=== PATIENT | female | born 1980 | race Caucasian/White ===

== ENCOUNTER 2016-11-06 22:37 | Emergency (ER) | payer OTHER ==
[~2016-11-06 22:37] MED LIST: BACTRIM DS TABL1 TA1 PO; BENTYL10 MG PO; CIPRO PO; CIPRO250 MG PO; CLINDAMYCIN HC300 MG PO; DICLOFENAC PO; DOXYCYCLINE HY100 M1 PO; ELIMITE60 GM TOP; FAMOTIDINE PO; FLAGYL PO; FLEXERIL PO; HYDROCODON-ACE1 EAC5 PO; HYDROCODONE-APA1 T33 PO; IBUPROFEN400 MG PO; IBUPROFEN800 MG PO; KADIAN PO; KEFLEX500 MG PO; KLONOPIN PO; LORTAB 10/500 T1 TAB PO; LORTAB 7.5-5001 TAB PO; LORTAB ELIXIR15 ML PO; MEDROL PO; METHADONE PO; NAPROSYN500 MG PO; NEOSPORIN28 GM TP; NORCO 7.5/325 T1 TAB PO; OMEPRAZOLE20 M1 PO; OMEPRAZOLE20 M2 PO; PARAFON FORTE500 MG PO; PENICILLIN; PENICILLIN PO; PERCOCET PO; PERCOCET5/325 PO; PHENERGAN PO; PHENERGAN SUPP25 MG; PHENERGAN SUPP25 MG PR; PHENERGAN SUPP25 MG RC; PHENERGAN25 M1 PO; PHENERGAN25 MG PO; PREDNISONE PO; PRILOSEC20 M1 PO; PRILOSEC20 MG PO; PROTONIX PO; PYRIDIUM PO; REGLAN10 MG PO; ROXICODONE I20 MG/ML PO; SUBOXONE 8 MG-1 EAC1 SL; TAGAMET PO; TYLENOL #3 PO; VISTARIL PO; VOLTAREN75 MG PO
[2016-11-06 23:42] LABS: BASOPHIL% 0.2 % (0-2.5); EOSINOPHIL% 0.1 % (0.0-7.0); HEMOGLOBIN 12.7 gm/dL (12.0-16.0); LYMPHOCYTE# 1.2 X10e3 (1.0-3.5); LYMPHOCYTE% 6.4 % (17.0-45.0); MEAN CELL VOLUME 92.9 FL (83-96); MEAN CORPUSCULAR HGB CONC 33.4 g/dL (30-36); MEAN PLATELET VOLUME 8.3 FL (6.5-11.5); MONOCYTE% 5.6 % (3.0-12.0); NEUTROPHIL# 15.8 X10e3 (1.5-7.1); NEUTROPHIL% 87.7 % (40-75); PLATELET COUNT 231 X10e3 (140-420); RED BLOOD COUNT 4.09 X10e (3.90-5.30); RED CELL DISTRIBUTION WIDTH 13.1 % (11.0-15.5); WHITE BLOOD COUNT 18.1 X10e3 (4.0-10.5)
[2016-11-06 23:50] LABS: DIFF IND YES
[2016-11-06 23:54] LABS: URINE SOURCE CLEAN CATCH
[2016-11-06 23:57] LABS: ANISOCYTOSIS SL; PLATELET ESTIMATE NORMAL (NORMAL)
[2016-11-07 00:05] LABS: URINE APPEARANCE CLEAR; URINE BILIRUBIN NEG (NEG); URINE BLOOD NEG (NEG); URINE COLOR YELLOW; URINE GLUCOSE 500 MG/DL (NEG); URINE KETONE NEG (NEG); URINE LEUKOCYTE ESTERASE NEG (NEG); URINE NITRATE NEG (NEG); URINE PH 5.5 (5-8); URINE PROTEIN NEG (NEG); URINE SPECIFIC GRAVITY 1.019 (1.003-1.035); URINE UROBILINOGEN 0.2 MG/DL (NEG)
[2016-11-07 00:07] LABS: ALBUMIN SERUM 4.1 g/dL (3.5-5.0); ALKALINE PHOSPHATASE 58 U/L (32-92); ALT (SGPT) 27 U/L (10-40); AST (SGOT) 30 U/L (10-42); BILIRUBIN,INDIRECT 0.4 mg/dL (0.0-0.9); BILIRUBIN,TOTAL 0.5 mg/dL (0.2-2.0); BLOOD UREA NITROGEN 10 mg/dL (9-23); CALCIUM SERUM 8.7 mg/dL (8.4-10.2); CARBON DIOXIDE 24 mmol/L (22-31); CHLORIDE 104 mmol/L (100-111); CREATININE SERUM 0.8 mg/dL (0.6-1.4); GLOM FILT RATE Estimated ABOVE60 mL/min (>60); GLUCOSE FASTING 154 mg/dL (70-110); POTASSIUM 4.3 mmol/L (3.5-5.1); PROTEIN TOTAL SERUM 7.3 g/dL (6.0-8.3); SODIUM 137 mmol/L (135-145)
[2016-11-07 00:08] LABS: ALCOHOL BLOOD <5 mg/dL (0); BILIRUBIN, DIRECT 0.1 mg/dL (0.0-0.2)
[2016-11-07 00:12] LABS: AMPHETAMINE NEG (NEG); BARBITURATES NEG (NEG); BENZODIAZEPINES NEG (NEG); COCAINE NEG (NEG); CULTURE INDICATED? NO; MARIJUANA NEG (NEG); OPIATES POS (NEG); TRICYCLIC ANTIDEPRESSANTS NEG (NEG); U METHADONE NEG (NEG)
== END 2016-11-07 01:40 | disposition home or self-care (01) ==
LOC: CED 22:37
PROVIDERS: Student in an Organized Health Care Education/Training Program
DX: F11.10 Opioid abuse, uncomplicated (principal); F17.200 Nicotine dependence, unspecified, uncomplicated; Z91.040 Latex allergy status
CPT/HCPCS: 36415; 80048; 80076; 80307; 81003; 84703; 85025; 96361; 96374; 99284; G0480; J2405

== ENCOUNTER 2016-11-16 13:12 | Emergency (ER) | payer OTHER ==
--- NOTE | ~2016-11-16 | CR72 ---
[facility] A Service of [facility] & [facility] RADIOLOGY TEXT RESULTS PATIENT: DEON FLOWERS LOCATION: [facility] : 84 UNIT #: [id number] AGE: [address]: Kevin Reyes DO SEX: F ORDER DR: [id number] [facility] [address] [place], [place] [address] [id number] MR#: [id number] Acc #: [id number] NAME: DEON FLOWERS : 1980 SEX: F STUDY DATE/TIME: 11/16/2016 12:20 UNIT: [facility] ROOM: STUDY DESCRIPTION: CR Chest Single View Portable Attending Physician: Kevin Reyes D.O. Ordering Physician: Kevin Reyes D.O. Primary Care Physician: No Primary Care Physician MEDICAL IMAGING REPORT This report is preliminary unless electronic signature is present EXAM Frontal chest, 11/16/2016. HISTORY 36-year-old female with chest pain, burning at the top of the chest for 2 years. Symptoms worse today, however. Hypertension. TECHNIQUE Frontal chest compared with 01/18/2016. FINDINGS Cardiac silhouette is within normal limits. The vascularity is normal. Lungs clear. No pneumothorax. No effusion. IMPRESSION Negative frontal chest. Dictated by... Bret Vega M.D. THIS IS AN ELECTRONICALLY VERIFIED REPORT Bret Vega M.D. at 11/16/2016 3:44 PM Horacio TD: 11/16/2016 14:45 JOB #: [id number] MEDICAL IMAGING REPORT COPY
--- NOTE | ~2016-11-16 | EKG ---
PATIENT: DEON FLOWERS UNIT #: [id number] Ventricular Rate: 95 BPM Atrial Rate: 95 BPM P-R Interval: 128 ms QRS Duration: 86 ms Q-T Interval: 332 ms QTC Calculation(Bezet): 417 ms P Boise: 61 degrees Calculated R Boise: 21 degrees Diagnosis Line: Normal sinus rhythm Diagnosis Line: Minimal voltage criteria for LVH, may be normal Diagnosis Line: variant Diagnosis Line: Nonspecific T wave abnormality Diagnosis Line: Abnormal ECG Diagnosis Line: When compared with ECG of 06-SEP-2016 23:46, Diagnosis Line: Nonspecific T wave abnormality, worse in Diagnosis Line: Anterolateral leads Diagnosis Line: Confirmed by DANA OVALLE MD ([id number]) on 11/17/2016 Diagnosis Line: 5:39:41 PM INTERPRETING MD: YAMILE BUCHANAN
[2016-11-16 12:40] LABS: URINE SOURCE CLEAN CATCH
[2016-11-16 12:45] LABS: BASOPHIL% 0.5 % (0-2.5); EOSINOPHIL# 0.1 X10e3 (0-0.7); EOSINOPHIL% 1.2 % (0.0-7.0); HEMATOCRIT 38.6 % (35.0-45.0); HEMOGLOBIN 13.3 gm/dL (12.0-16.0); LYMPHOCYTE# 1.8 X10e3 (1.0-3.5); LYMPHOCYTE% 22.4 % (17.0-45.0); MEAN CORPUSCULAR HEMOGLOBIN 31.3 PG (28-34); MEAN CORPUSCULAR HGB CONC 34.3 g/dL (30-36); MEAN PLATELET VOLUME 8.5 FL (6.5-11.5); MONOCYTE# 0.6 X10e3 (0-1.0); MONOCYTE% 7.2 % (3.0-12.0); NEUTROPHIL# 5.6 X10e3 (1.5-7.1); NEUTROPHIL% 68.7 % (40-75); PLATELET COUNT 267 X10e3 (140-420); RED BLOOD COUNT 4.24 X10e (3.90-5.30); RED CELL DISTRIBUTION WIDTH 12.8 % (11.0-15.5); WHITE BLOOD COUNT 8.1 X10e3 (4.0-10.5)
[2016-11-16 12:46] LABS: URINE APPEARANCE CLEAR; URINE BILIRUBIN NEG (NEG); URINE BLOOD NEG (NEG); URINE COLOR YELLOW; URINE GLUCOSE NEG (NEG); URINE KETONE NEG (NEG); URINE LEUKOCYTE ESTERASE NEG (NEG); URINE NITRATE NEG (NEG); URINE PH 5.5 (5-8); URINE PROTEIN NEG (NEG); URINE SPECIFIC GRAVITY 1.017 (1.003-1.035); URINE UROBILINOGEN 0.2 MG/DL (NEG)
[2016-11-16 12:46] LABS: DIFF IND NO
[2016-11-16 12:48] LABS: CULTURE INDICATED? NO
[2016-11-16 12:56] LABS: AMPHETAMINE NEG (NEG); BARBITURATES NEG (NEG); BENZODIAZEPINES NEG (NEG); COCAINE NEG (NEG); MARIJUANA NEG (NEG); OPIATES NEG (NEG); TRICYCLIC ANTIDEPRESSANTS NEG (NEG); U METHADONE NEG (NEG)
[2016-11-16 12:58] LABS: PARTIAL THROMBOPLASTIN TIME 26.8 SECONDS (23.5-31.3); PROTHROMBIN TIME (PATIENT) 10.8 SECONDS (9.6-11.5)
[2016-11-16 13:04] LABS: POC - CKMB <1.0 ng/mL (0.0-7.9); POC - TROPONIN <0.05 ng/mL (<=0.05)
[2016-11-16 13:15] LABS: ACETAMINOPHEN <10 ug/mL; ALBUMIN SERUM 4.1 g/dL (3.5-5.0); ALCOHOL BLOOD <5 mg/dL (0); ALKALINE PHOSPHATASE 50 U/L (32-92); ALT (SGPT) 16 U/L (10-40); AST (SGOT) 18 U/L (10-42); BILIRUBIN, DIRECT <0.1 mg/dL (0.0-0.2); BILIRUBIN,INDIRECT 0.2 mg/dL (0.0-0.9); BILIRUBIN,TOTAL 0.3 mg/dL (0.2-2.0); BLOOD UREA NITROGEN 9 mg/dL (9-23); BUN/CREATININE RATIO 12.85; CALCIUM SERUM 9.4 mg/dL (8.4-10.2); CARBON DIOXIDE 25 mmol/L (22-31); CHLORIDE 104 mmol/L (100-111); CREATININE SERUM 0.7 mg/dL (0.6-1.4); GLOM FILT RATE Estimated ABOVE60 mL/min (>60); GLUCOSE FASTING 104 mg/dL (70-110); POTASSIUM 3.5 mmol/L (3.5-5.1); PROTEIN TOTAL SERUM 7.4 g/dL (6.0-8.3); SODIUM 138 mmol/L (135-145)
[2016-11-16 14:41] LABS: POC - CKMB <1.0 ng/mL (0.0-7.9); POC - TROPONIN <0.05 ng/mL (<=0.05)
== END 2016-11-16 15:07 | disposition home or self-care (01) ==
LOC: CED 13:12
PROVIDERS: Emergency Medicine
DX: R07.9 Chest pain, unspecified (principal); Z90.49 Acquired absence of other specified parts of digestive tract; Z91.040 Latex allergy status; Z88.6 Allergy status to analgesic agent
CPT/HCPCS: 36415; 71010; 80048; 80076; 80307; 81003; 82553; 84484; 84703; 85025; 85379; 85610; 85730; 93005; 96374; 96375; 99284; G0480; J1885

== ENCOUNTER 2016-11-21 09:29 | Emergency (ER) | payer OTHER | END 2016-11-21 09:34 | disposition home or self-care (01) | LOC: CED 09:29 | DX: R20.9 Unspecified disturbances of skin sensation (principal); F17.200 Nicotine dependence, unspecified, uncomplicated; Z90.49 Acquired absence of other specified parts of digestive tract; Z98.51 Tubal ligation status | CPT/HCPCS: 99282 ==

== ENCOUNTER 2016-11-21 20:00 | Inpatient (IN) | payer OTHER ==
--- NOTE | ~2016-11-21 | PN ---
Unit #: [id number] #: [id number] Patient: DEON FLOWERS [id number] [facility] [address] [place] [address] [id number] I MR#: [id number] NAME: DEON FLOWERS ROOM: [facility] Age: 36 Sex: F Admission Date: 11/21/2016 : 1980 Attending Physician: Silverio Greenberg M.D. Admitting Physician: Silverio Greenberg M.D. Primary Care Physician: Primary Care Physician Chioma DELUNA PROGRESS NOTES DATE 11/24/2016 DISCUSSION The patient is abed today complaining of severe discomfort related to substance withdrawal. Staff reports that she seems to be exaggerating her symptoms at this time, but she had seemed in much less distress earlier in the day. I have encouraged the patient to increase participation within the therapeutic milieu and expect a.m. discharge. Dictated by... Silverio Greenberg M.D. CB/tigre TD: 11/24/2016 14:29 JOB #: [id number] REGI PROGRESS NOTES X Silverio Greenberg MD PROGRESS NOTE
--- NOTE | ~2016-11-21 | PN ---
Unit #: [id number] #: [id number] Patient: DEON FLOWERS [id number] [facility] [address] [place] [address] [id number] I MR#: [id number] NAME: DEON FLOWERS ROOM: [facility] Age: 36 Sex: F Admission Date: 11/21/2016 : 1980 Attending Physician: Silverio Greenberg M.D. Admitting Physician: Silverio Greenberg M.D. Primary Care Physician: Primary Care Physician Chioma ZARATE NOTES DATE 11/24/2016 DISCUSSION The patient continues to complain of severe GI distress related to opioid withdrawal stating that she was "taking 10 Percocets a day" prior to coming to the hospital. We will continue to watch, but I have redirected her expectations of inpatient care, and we will look to refer her to intensive outpatient program with probable a.m. discharge. Dictated by... Silverio Greenberg M.D. CB/bzg TD: 11/26/2016 07:06 JOB #: [id number] REGI ZARATE NOTES X Silverio Greenberg MD PROGRESS NOTE
--- NOTE | ~2016-11-21 | DS ---
Unit #: [id number] #: [id number] Patient: DEON FLOWERS [id number] [place] [address] [id number] I MR#: [id number] NAME: DEON FLOWERS ROOM: [facility] Age: 36 Sex: F Admission Date: 11/21/2016 : 1980 Discharge Date: 11/26/2016 Attending Physician: Silverio Greenberg M.D. Primary Care Physician: Primary Care Physician No DISCHARGE SUMMARY REASON FOR ADMISSION The patient is a 36-year-old white female, admitted with abuse of Xanax and methadone. She was reporting positive suicidal ideation with plan to kill herself. HOSPITAL COURSE The patient was admitted this evening to the [facility] unit and continued on home medications including Risperdal and Depakote. Vistaril and BuSpar were added given the patient's complaints of anxiety. The patient remained at bed throughout much of her stay in the hospital and did seem to exhibit significant symptoms of opioid withdrawal, even up until 11/25/2016. By 11/26/2016, however, the patient was in brighter spirits and exhibited no signs or symptoms of withdrawal. She was agreeable with plan for followup through the auspices of community mental health resources and the chemical dependency intensive outpatient program provided by this facility. Discharge was ordered. DIAGNOSTIC STUDIES LABORATORY RESULTS: At the time of discharge included a negative beta hCG. Interestingly, the patient's drug screen was entirely negative. DISPOSITION ON DISCHARGE The patient is discharged on the following medications: Risperdal 3 mg b.i.d. for mood stabilization, Depakote ER 500 mg two tablets at bedtime for mood stabilization, Vistaril 50 mg q.6 hours p.r.n. anxiety, and BuSpar 10 mg b.i.d. for anxiety. DISCHARGE INSTRUCTIONS No dietary or physical restrictions were placed upon the patient at the time of discharge. FOLLOWUP Followup will take place through the auspices of community mental health resources. The patient's prognosis is considered and the patient will be referred to the chemical dependency intensive outpatient program by this facility. PROGNOSIS Her prognosis is considered fair. Dictated by... Silverio Greenberg M.D. Unit #: [id number] #: [id number] Patient: DEON FLOWERS CB/javier TD: 11/27/2016 01:25 JOB #: [id number] DISCHARGE SUMMARY X Silverio Greenberg MD X DISCHARGE SUMMARY
--- NOTE | ~2016-11-21 | HP ---
Unit #: [id number] #: [id number] Patient: YUMIKO FLOWERS [id number] [place] [address] [id number] I MR#: [id number] NAME: YUMIKO FLOWERS ROOM: [facility] Age: 36 Sex: F Admission Date: 11/21/2016 : 1980 Attending Physician: Silverio Greenberg M.D. Admitting Physician: Silverio Greenberg M.D. Primary Care Physician: Primary Care Physician No HISTORY AND PHYSICAL HISTORY OF PRESENT ILLNESS Yumiko is a 36 year old admitted to [address] [place] [address] because of her continued drug abuse. She admits to abusing benzodiazepines. She was recently discharged from this facility after treatment for the same. The patient was seen and history and physical dated 10/24/2016 was reviewed. This is current, no changes. Please see history and physical dated 10/24/2016. Dictated by... Lashon Fowler P.A.-C. for Chuckie Norton/kristi TD: 11/22/2016 23:32 JOB #: [id number] HISTORY AND PHYSICAL X Lashon Fowelr HISTORY AND PHYSICAL
--- NOTE | ~2016-11-21 | PA ---
Unit #: [id number] #: [id number] Patient: DEON FLOWERS [id number] [facility] [address] [place] [address] [id number] I MR#: [id number] NAME: DEON FLOWERS ROOM: [facility] Age: 36 Sex: F Admission Date: 11/21/2016 : 1980 Date of Assessment: 11/22/2016 Attending Physician: Silverio Greenberg M.D. Admitting Physician: Silverio Greenberg M.D. Primary Care Physician: Primary Care Physician No PSYCHIATRIC ASSESSMENT IDENTIFYING INFORMATION The patient is a 36-year-old white female admitted to the [address] [place] [address] unit after presenting to this facility claiming to be suicidal with a plan to "choke herself to ." INFORMANT(S) Patient and chart, reliability is fair. CHIEF COMPLAINT None given. HISTORY OF PRESENT ILLNESS The patient is a 36-year-old white female last discharged from this facility on 10/27/2016. The patient returns stating that she is suicidal and had once discharged return to abuse of illicitly obtained Xanax, methadone, and Suboxone. The patient reports ongoing symptoms of anxiety and depressed mood as well as thoughts of suicide. The patient lives with her parents. She states that she does not work outside the home. The parent's electricity has been cut off and this has been a source of stress for the patient. She continues to endorse positive suicidal ideation when seen today. For a more complete history of present illness please refer to previously dictated notes. PAST PSYCHIATRIC HISTORY Reviewed and no changes. PAST MEDICAL HISTORY Reviewed and no changes. MEDICATIONS AT THE TIME OF DISCHARGE The patient's medications include: 1. Risperdal 2. Vistaril 3. BuSpar 4. Neurontin ALLERGIES Latex and tramadol. FAMILY HISTORY Unit #: [id number] #: [id number] Patient: DEON FLOWERS Noncontributory. SOCIAL HISTORY Reviewed and no changes. MENTAL STATUS EXAM At this time reveals the patient to be an obese white female appearing her stated age. She is in no apparent physical distress at the time of the examination. She is awake, alert, and oriented in all spheres. Her mood is mildly dysphoric. Her affect is constricted. Speech is generally relevant and coherent. There are no gross deficits to memory or cognition noted. Intelligence is judged to be in the average range based on fund of knowledge. The patient is cooperative throughout the interview. She is currently endorsing positive suicidal ideation. she denies homicidal ideation. She denies any psychotic symptoms. Her judgment and insight appear to be intact. No signs of substance withdrawal at this point in evidence. ASSETS To be assessed. LIABILITIES Lack of resources. DIAGNOSTIC IMPRESSION [place] I: TREATMENT PLAN The patient remains hospitalized for safety and stabilization and we will continue previously prescribed Risperdal, Vistaril, and BuSpar. Neurontin will be discontinued given this medication's abuse potential and given the patient's history of opioid abuse and we will begin a trial of Depakote ER 1000 mg at h.s. in hopes of addressing the patient's complaint of tariq and unstable mood. The patient will participate in appropriate lópez and milieu activities and will be transferred to a unit where she can participate in chemical dependence programming. ESTIMATED LENGTH OF STAY IN THE HOSPITAL Lbzye-fr-bmud days. Dictated by... Silverio Greenberg M.D. FABIO/blaze TD: 11/22/2016 13:09 JOB #: [id number] Unit #: [id number] #: [id number] Patient: DEON FLOWERS PSYCHIATRIC ASSESSMENT X Silverio Greenberg MD X PSYCHIATRIC ASSESSMENT
--- NOTE | ~2016-11-21 | PN ---
Unit #: [id number] #: [id number] Patient: DEON FLOWERS [id number] [facility] [address] [place] [address] [id number] I MR#: [id number] NAME: DEON FLOWERS ROOM: [facility] Age: 36 Sex: F Admission Date: 11/21/2016 : 1980 Attending Physician: Silverio Greenberg M.D. Admitting Physician: Silverio Greenberg M.D. Primary Care Physician: Primary Care Physician Chioma ZARATE NOTES DATE 11/23/2016 DISCUSSION The patient was found with a ChapStick with a foreign substance in her room yesterday, we have changed her Ativan to be given only as objective signs will indicate need alleviating subjective criteria for this medication. The patient is, therefore, upset, and demands "something for my anxiety." We will add Vistaril 50 mg q.6h p.r.n. anxiety. Dictated by... Silverio Greenberg M.D. CB/blaze TD: 11/23/2016 12:53 JOB #: [id number] REGI ZARATE NOTES X Silverio Greenberg MD PROGRESS NOTE
[2016-11-22 09:47] LABS: URINE APPEARANCE CLEAR; URINE BILIRUBIN NEG (NEG); URINE BLOOD NEG (NEG); URINE COLOR YELLOW; URINE GLUCOSE NEG (NEG); URINE KETONE NEG (NEG); URINE LEUKOCYTE ESTERASE TRACE (NEG); URINE NITRATE NEG (NEG); URINE PROTEIN NEG (NEG); URINE SPECIFIC GRAVITY 1.019 (1.003-1.035); URINE UROBILINOGEN 0.2 MG/DL (NEG)
[2016-11-22 09:52] LABS: URINE BACTERIA AUWI NEG (NEGATIVE); URINE SQUAMOUS EPITHELIAL CELL OCC /[HPF]
[2016-11-22 10:21] LABS: AMPHETAMINE NEG (NEG); BARBITURATES NEG (NEG); BENZODIAZEPINES NEG (NEG); COCAINE NEG (NEG); MARIJUANA NEG (NEG); OPIATES NEG (NEG); TRICYCLIC ANTIDEPRESSANTS NEG (NEG); U METHADONE NEG (NEG)
[2016-11-22 12:27] LABS: BASOPHIL% 0.4 % (0-2.5); EOSINOPHIL# 0.1 X10e3 (0-0.7); EOSINOPHIL% 1.1 % (0.0-7.0); HEMATOCRIT 39.5 % (35.0-45.0); HEMOGLOBIN 13.2 gm/dL (12.0-16.0); LYMPHOCYTE# 1.7 X10e3 (1.0-3.5); LYMPHOCYTE% 22.6 % (17.0-45.0); MEAN CELL VOLUME 91.8 FL (83-96); MEAN CORPUSCULAR HEMOGLOBIN 30.6 PG (28-34); MEAN CORPUSCULAR HGB CONC 33.3 g/dL (30-36); MEAN PLATELET VOLUME 8.9 FL (6.5-11.5); MONOCYTE# 0.5 X10e3 (0-1.0); MONOCYTE% 6.9 % (3.0-12.0); NEUTROPHIL# 5.3 X10e3 (1.5-7.1); PLATELET COUNT 273 X10e3 (140-420); RED BLOOD COUNT 4.31 X10e (3.90-5.30); RED CELL DISTRIBUTION WIDTH 12.8 % (11.0-15.5); WHITE BLOOD COUNT 7.7 X10e3 (4.0-10.5)
[2016-11-22 12:41] LABS: ALBUMIN SERUM 4.2 g/dL (3.5-5.0); ALKALINE PHOSPHATASE 56 U/L (32-92); ALT (SGPT) 15 U/L (10-40); AST (SGOT) 20 U/L (10-42); BILIRUBIN,TOTAL 0.4 mg/dL (0.2-2.0); BLOOD UREA NITROGEN 8 mg/dL (9-23); BUN/CREATININE RATIO 11.42; CALCIUM SERUM 9.6 mg/dL (8.4-10.2); CARBON DIOXIDE 24 mmol/L (22-31); CHLORIDE 103 mmol/L (100-111); CREATININE SERUM 0.7 mg/dL (0.6-1.4); GLOM FILT RATE Estimated ABOVE60 mL/min (>60); GLUCOSE FASTING 97 mg/dL (70-110); POTASSIUM 4.4 mmol/L (3.5-5.1); SODIUM 137 mmol/L (135-145)
[2016-11-22 12:42] LABS: DIFF IND NO
[2016-11-22 12:47] LABS: THYROID STIMULATING HORMONE 0.33 uIU/ml (0.34-5.60)
[2016-11-22 12:54] LABS: FREE THYROXIN (T4) 0.86 ng/dL (0.58-1.64)
== END 2016-11-26 13:30 | disposition home or self-care (01) | DRG 897 ==
LOC: P2L 20:00
PROVIDERS: Specialist
PROC: 3E0234Z Introduction of Serum, Toxoid and Vaccine into Muscle, Percutaneous Approach (ICD-10-PCS; principal; 2016-11-22)
DX: F19.10 Other psychoactive substance abuse, uncomplicated (principal); R45.851 Suicidal ideations; F41.9 Anxiety disorder, unspecified; Z23 Encounter for immunization
CPT/HCPCS: 80053; 80307; 81003; 84439; 84443; 84703; 85025; 86592; 90688

== ENCOUNTER 2016-12-07 09:47 | Emergency (ER) | payer OTHER ==
[2016-12-07 08:51] LABS: BASOPHIL% 0.4 % (0-2.5); EOSINOPHIL# 0.1 X10e3 (0-0.7); EOSINOPHIL% 1.9 % (0.0-7.0); HEMATOCRIT 38.8 % (35.0-45.0); HEMOGLOBIN 13.1 gm/dL (12.0-16.0); LYMPHOCYTE# 1.7 X10e3 (1.0-3.5); LYMPHOCYTE% 22.1 % (17.0-45.0); MEAN CELL VOLUME 91.9 FL (83-96); MEAN CORPUSCULAR HEMOGLOBIN 30.9 PG (28-34); MEAN CORPUSCULAR HGB CONC 33.6 g/dL (30-36); MEAN PLATELET VOLUME 8.6 FL (6.5-11.5); MONOCYTE# 0.6 X10e3 (0-1.0); MONOCYTE% 7.4 % (3.0-12.0); NEUTROPHIL# 5.1 X10e3 (1.5-7.1); NEUTROPHIL% 68.2 % (40-75); PLATELET COUNT 224 X10e3 (140-420); RED BLOOD COUNT 4.22 X10e (3.90-5.30); RED CELL DISTRIBUTION WIDTH 13.1 % (11.0-15.5); WHITE BLOOD COUNT 7.5 X10e3 (4.0-10.5)
[2016-12-07 08:54] LABS: DIFF IND NO
[2016-12-07 08:59] LABS: AMPHETAMINE NEG (NEG); BARBITURATES NEG (NEG); BENZODIAZEPINES NEG (NEG); COCAINE NEG (NEG); MARIJUANA NEG (NEG); OPIATES POS (NEG); TRICYCLIC ANTIDEPRESSANTS NEG (NEG); U METHADONE NEG (NEG)
[2016-12-07 09:35] LABS: ACETAMINOPHEN <10 ug/mL; ALCOHOL BLOOD 7 mg/dL (0); ALKALINE PHOSPHATASE 44 U/L (32-92); ALT (SGPT) 14 U/L (10-40); AST (SGOT) 17 U/L (10-42); BILIRUBIN, DIRECT 0.1 mg/dL (0.0-0.2); BILIRUBIN,TOTAL <0.1 mg/dL (0.2-2.0); BLOOD UREA NITROGEN 10 mg/dL (9-23); BUN/CREATININE RATIO 14.28; CARBON DIOXIDE 23 mmol/L (22-31); CHLORIDE 102 mmol/L (100-111); CREATININE SERUM 0.7 mg/dL (0.6-1.4); GLUCOSE FASTING 99 mg/dL (70-110); POTASSIUM 3.7 mmol/L (3.5-5.1); PROTEIN TOTAL SERUM 7.1 g/dL (6.0-8.3); SALICYLATE <4.0 mg/dL; SODIUM 132 mmol/L (135-145)
== END 2016-12-07 11:47 ==
LOC: CED 09:47
PROVIDERS: Physician Assistant Medical
DX: R45.851 Suicidal ideations (principal); F17.210 Nicotine dependence, cigarettes, uncomplicated; Z98.51 Tubal ligation status; Z98.890 Other specified postprocedural states; Z88.5 Allergy status to narcotic agent
CPT/HCPCS: 36415; 80048; 80076; 80307; 84703; 85025; 99285; G0480

== ENCOUNTER 2016-12-07 12:18 | Inpatient (IN) | payer OTHER ==
--- NOTE | ~2016-12-07 | PN ---
Unit #: [id number] #: [id number] Patient: DEON FLOWERS [id number] [facility] [address] [place] [address] [id number] I MR#: [id number] NAME: DEON FLOWERS ROOM: [facility] Age: 36 Sex: F Admission Date: 12/07/2016 : 1980 Attending Physician: Silverio Greenberg M.D. Admitting Physician: Chuckie Shafer PROGRESS NOTES DATE 12/09/2016 DISCUSSION The patient complains of poor sleep, but is otherwise in good spirits. She continues to express an interest in residential chemical dependence treatment. She exhibits little in the way of signs or symptoms of withdrawal. I will add trazodone 50 mg at h.s. p.r.n. insomnia. Dictated by... Silverio Greenberg M.D. CB/tigre TD: 12/09/2016 15:15 JOB #: [id number] [facility] PROGRESS NOTES Page 1 of 1 X Silverio Greenberg MD X PROGRESS NOTE
--- NOTE | ~2016-12-07 | PN ---
Unit #: [id number] #: [id number] Patient: DEON FLOWERS [id number] [facility] [address] [place] [address] [id number] I MR#: [id number] NAME: DEON FLOWERS ROOM: [facility] Age: 36 Sex: F Admission Date: 12/07/2016 : 1980 Attending Physician: Silverio Greenberg M.D. Admitting Physician: Chuckie Shafer PROGRESS NOTES DATE 12/10/2016 DISCUSSION The patient offers no new complaints today and we are looking at probable a.m. discharge with the patient pursuing residential treatment following discharge. Dictated by... Silverio Greenberg M.D. CB/clarice TD: 12/10/2016 17:20 JOB #: [id number] REGI PROGRESS NOTES Page 1 of 1 X Silverio Greenberg MD X PROGRESS NOTE
--- NOTE | ~2016-12-07 | HP ---
Unit #: [id number] #: [id number] Patient: YUMIKO FLOWERS [id number] [place] [address] [id number] I MR#: [id number] NAME: YUMIKO FLOWERS ROOM: [facility] Age: 36 Sex: F Admission Date: 12/07/2016 : 1980 Attending Physician: Silverio Greenberg M.D. Admitting Physician: Silverio Greenberg M.D. HISTORY AND PHYSICAL HISTORY OF PRESENT ILLNESS Yumiko is a 36 year old admitted to [facility] because of her continued drug use. She has had numerous admissions to this facility for treatment of the same. PAST MEDICAL HISTORY 1. History of poly illicit substance abuse to include methadone, Suboxone, and benzodiazepines. 2. History of withdrawal seizures. 3. High blood pressure. 4. Obesity. PAST SURGICAL HISTORY 1. Cholecystectomy. 2. D and C. ALLERGIES No known drug allergies. SOCIAL HISTORY Smokes one pack per day. Drinks alcohol rarely. Has a history of illicit drug use and continues to use. FAMILY HISTORY Medically noncontributory. REVIEW OF SYSTEMS CONSTITUTIONAL: No fever or chills. HEENT: Denies any sore throat, ear pain or runny nose. CARDIOVASCULAR: Denies chest pain, irregular heart rhythm or palpitations. CHEST: Denies shortness of breath or cough. No hemoptysis. GASTROINTESTINAL: Denies nausea, vomiting, diarrhea or chronic constipation. ENDOCRINE: Denies history of increased thirst or urination. No recent significant weight loss or gain. GENITOURINARY: Denies dysuria, frequency, or hematuria. SKIN: Denies any rashes. HEMATOLOGIC: Denies history of increased bleeding or bruising. MUSCULOSKELETAL: Denies any hot, swollen joints. No generalized muscle pain. NEUROLOGIC: Denies problems with vision or speech. No frequent, severe headaches. No numbness, tingling or weakness in any extremities. Denies loss of bladder or bowel control. Unit #: [id number] #: [id number] Patient: YUMIKO FLOWERS CURRENT MEDICATIONS 1. Detox protocol. 2. Nicotine patch 14 mg q. day. 3. Depakote 1000 mg q.h.s. 4. Risperdal 3 mg b.i.d. 5. BuSpar 10 mg b.i.d. PHYSICAL EXAMINATION GENERAL: Alert, well nourished. No apparent distress. VITAL SIGNS: Blood pressure 110/80, heart rate 80, respirations 16, and temperature 98.6. WEIGHT: 190. HEIGHT: 5 feet 5 inches. SKIN: Warm and dry without rash or lesion. HEENT: Normocephalic. TMs not viewed. Oral and nasal passages clear. Conjunctivae clear. PERRLA. EOMs intact. NECK: Supple without lymphadenopathy or thyromegaly. HEART: Regular rate and rhythm without murmur. LUNGS: Clear. ABDOMEN: Soft, nontender. : Not done. EXTREMITIES: No evidence of cyanosis, clubbing or edema. Moves all without focal deficit. NEUROLOGICAL: Grossly within normal limits. Cranial Nerves: II: Visual messer are intact. III, IV AND : Extraocular movements are intact. Pupils are equal, round and reactive to light. V: Facial sensation is grossly normal. VII: Facial movements and expression are normal. VIII: Auditory acuity grossly intact. IX, X: Uvula is midline. Phonation is normal. XI: Patient shrugs shoulders and turns head normally. XII: Tongue protrudes in the midline. Sensory and Motor Function: Sensory and motor sensation is grossly normal. Motor: moves all extremities well. Coordination: Gait is normal. Deep Tendon Reflexes: Intact. IMPRESSION Psychiatric admission. RECOMMENDATIONS PSYCHIATRIC: Per psychiatrist. MEDICAL: 1. I see no contraindication to participate in this facility's activities. 2. Detox per protocol. MEDICAL PROGNOSIS Good. MEDICAL CONDITION Stable. Dictated by... Lashon Fowler P.A.-C. for Brennon Osborn M.D. Unit #: [id number] #: [id number] Patient: YUMIKO FLOWERS LESLIE/bzg TD: 12/08/2016 10:57 JOB #: [id number] HISTORY AND PHYSICAL Page 1 of 1 X Lashon Fowler HISTORY AND PHYSICAL
--- NOTE | ~2016-12-07 | DS ---
Unit #: [id number] #: [id number] Patient: DEON FLOWERS [id number] [facility] [address] [place] [address] [id number] I MR#: [id number] NAME: DEON FLOWERS ROOM: [facility] Age: 36 Sex: F Admission Date: 12/07/2016 : 1980 Discharge Date: 12/11/2016 Attending Physician: Silverio Greenberg M.D. DISCHARGE SUMMARY REASON FOR ADMISSION The patient is a 36-year-old white female, admitted to the [facility] unit complaining of increasing suicidal ideation and opioid abuse. HOSPITAL COURSE The patient was admitted to the [facility] unit and placed on routine detoxification protocol for opioids. Her stay in the hospital was a fairly uneventful one. She was continued on previously prescribed home medications and by 12/11/2016, she was in bright spirits. She exhibited no signs or symptoms of withdrawal. Discharge was ordered. FINAL DIAGNOSES Opioid use disorder; sedative hypnotic use disorder; bipolar disorder, depressed phase; moderate obesity. DISPOSITION ON DISCHARGE The patient is discharged on the following medications: BuSpar 10 mg b.i.d. for anxiety, Risperdal 3 mg b.i.d. for mood stabilization, Depakote 500 mg two tablets at bedtime for mood stabilization, and trazodone 50 mg at h.s. p.r.n. insomnia. DISCHARGE INSTRUCTIONS No dietary or physical restrictions were placed upon the patient at the time of discharge. FOLLOWUP Followup will take place through the auspices of the chemical dependency intensive outpatient program provided by this facility. PROGNOSIS The patient's prognosis is considered fair. Dictated by... Silverio Greenberg M.D. CB/javier TD: 12/11/2016 17:53 JOB #: [id number] Unit #: [id number] #: [id number] Patient: DEON FLOWERS DISCHARGE SUMMARY Page 1 of 1 X Silverio Greenberg MD X DISCHARGE SUMMARY
--- NOTE | ~2016-12-07 | PA ---
Unit #: [id number] #: [id number] Patient: DEON FLOWERS [id number] [facility] [address] [place] [address] [id number] MR#: [id number] NAME: DEON FLOWERS ROOM: [facility] Age: 36 Sex: F Admission Date: 12/07/2016 : 1980 Date of Assessment: 12/07/2016 Attending Physician: Silverio Greenberg M.D. Admitting Physician: Silverio Greenberg M.D. PSYCHIATRIC ASSESSMENT IDENTIFYING INFORMATION The patient is a 36-year-old white female who returns to the [facility] Unit complaining of increasing suicidal ideation and opioid abuse. CHIEF COMPLAINT "I'm afraid I'll overdose." INFORMANT(S) Patient, reliability is fair. HISTORY OF PRESENT ILLNESS The patient is a 36-year-old white female last discharged from this facility on 11/26/2016. She has been living with her mother but did not fill prescriptions for Risperdal and Depakote which have been prescribed in the hospital claiming that they she had lost it. The patient returns to the hospital today stating that she does not feel safe. She reports a history of previous overdose on prescribed psychotropic medications. The patient has been using illicitly obtained Suboxone and pain pills. She also claims to be on prescribed Xanax though her drug screen is positive only for opioids. The patient continues to report suicidal ideation with plans to choke herself. For more complete history of present illness, please refer to previously dictated notes. PAST PSYCHIATRIC HISTORY Reviewed, no changes. PAST MEDICAL HISTORY Reviewed, no changes. MEDICATIONS Depakote, Risperdal, BuSpar, Vistaril, and Melatonin. ALLERGIES None reported. FAMILY HISTORY Reviewed, no changes. SOCIAL HISTORY Reviewed, no changes. MENTAL STATUS EXAMINATION Examination at this time reveals the patient to be an obese white female Unit #: [id number] #: [id number] Patient: DEON FLOWERS appearing stated age. She is in no apparent physical distress at the time of examination. She is awake, alert, and oriented in all spheres. Her mood is mildly dysphoric, her affect blunted and strange. Speech is generally well coherent. No gross deficits in memory or cognition noted. Intelligence is judged to be in the average range based on fund of knowledge. The patient is cooperative throughout the interview. She is currently endorsing positive suicidal ideation with plan to overdose. She denies homicidal ideation. She denies any psychotic symptoms. Her judgment and insight appear to be somewhat impaired. ASSETS AND LIABILITIES The patient's assets are to be assessed. Liabilities: Poor compliance with treatment. Ongoing substance use. DIAGNOSTIC IMPRESSION 1. Opioid use disorder. 2. Bipolar disorder, depressed phase, moderate. 3. Obesity. TREATMENT PLAN The patient remains hospitalized for safety and stabilization. We will restart previously prescribed medications including Depakote and Risperdal as well as the patient's other previously prescribed medications. Routine detoxification protocol for opioids remains in place. ESTIMATED LENGTH OF STAY 3 to 5 days. The followup will take place through the auspices of the intensive outpatient program [facility]. Dictated by... Silverio Greenberg M.D. Srinath TD: 12/07/2016 13:45 JOB #: [id number] PSYCHIATRIC ASSESSMENT Page 1 of 1 X Silverio Greenberg MD X PSYCHIATRIC ASSESSMENT
--- NOTE | ~2016-12-07 | PN ---
Unit #: [id number] #: [id number] Patient: DEON FLOWERS [id number] [facility] [address] [place] [address] [id number] I MR#: [id number] NAME: DEON FLOWERS ROOM: [facility] Age: 36 Sex: F Admission Date: 12/07/2016 : 1980 Attending Physician: Silverio Greenberg M.D. Admitting Physician: Chuckie Shafer PROGRESS NOTES DATE 12/08/2016 DISCUSSION The patient is continuing to complain of severe anxiety. I have gently but firmly confronted the patient regarding the fact that during her last hospital stay she was in fact negative for all substances but seemed to be feigning symptoms of severe withdrawal in order to gain medication. She is expressing interest in residential chemical dependence treatment and in as much I will ask her social media specialist to see her regarding possible residential chemical dependence treatment. Dictated by... Silverio Greenberg M.D. CB/clarice TD: 12/08/2016 16:17 JOB #: [id number] REGI ZARATE NOTES Page 1 of 1 X Silverio Greenberg MD X PROGRESS NOTE
== END 2016-12-11 14:00 | disposition home or self-care (01) | DRG 897 ==
LOC: P1E 12:18
PROC: HZ2ZZZZ Detoxification Services for Substance Abuse Treatment (ICD-10-PCS; principal; 2016-12-07)
DX: F11.20 Opioid dependence, uncomplicated (principal); R45.851 Suicidal ideations; F31.32 Bipolar disorder, current episode depressed, moderate; F13.20 Sedative, hypnotic or anxiolytic dependence, uncomplicated; E66.9 Obesity, unspecified; I10 Essential (primary) hypertension; F17.200 Nicotine dependence, unspecified, uncomplicated; F41.9 Anxiety disorder, unspecified
CPT/HCPCS: 84703; 86592

== ENCOUNTER 2016-12-30 12:27 | Emergency (ER) | payer OTHER ==
[2016-12-30 14:25] LABS: AMPHETAMINE POS (NEG); BARBITURATES NEG (NEG); BENZODIAZEPINES NEG (NEG); COCAINE NEG (NEG); MARIJUANA NEG (NEG); OPIATES NEG (NEG); TRICYCLIC ANTIDEPRESSANTS NEG (NEG); U METHADONE NEG (NEG)
== END 2016-12-30 16:20 | disposition short-term general hospital (02) ==
LOC: CED 12:27
PROVIDERS: Emergency Medicine
DX: F32.9 Major depressive disorder, single episode, unspecified (principal); F17.200 Nicotine dependence, unspecified, uncomplicated; Z88.5 Allergy status to narcotic agent; Z91.040 Latex allergy status
CPT/HCPCS: 80307; 84703; 99285

== ENCOUNTER 2016-12-30 17:25 | Inpatient (IN) | payer OTHER ==
--- NOTE | ~2016-12-30 | HP ---
Unit #: [id number] #: [id number] Patient: DEON FLOWERS [id number] [facility] [address] [place] [address] [id number] MR#: [id number] NAME: DEON FLOWERS ROOM: [facility] Age: 36 Sex: F Admission Date: 12/30/2016 : 1980 Attending Physician: Sivlerio Greenberg M.D. Admitting Physician: Silverio Greenberg M.D. Primary Care Physician: Primary Care Physician No HISTORY AND PHYSICAL The patient is a 36-year-old female admitted to [facility] on 12/30/2016 for her continued drug use. Patient had a recent admission on 12/07/2016 where a full history and physical was completed. That history and physical has been reviewed. No changes need to be made. Dictated by... Jw Elizondo/clarice TD: 12/31/2016 16:24 JOB #: [id number] HISTORY AND PHYSICAL Page 1 of 1 X SHAI MCCURDY APRN X HISTORY AND PHYSICAL
--- NOTE | ~2016-12-30 | DS ---
Unit #: [id number] #: [id number] Patient: DEON FLOWERS [id number] [facility] [address] [place] [address] [id number] I MR#: [id number] NAME: DEON FLOWERS ROOM: [facility] Age: 36 Sex: F Admission Date: 12/30/2016 : 1980 Discharge Date: 01/03/2017 Attending Physician: Silverio Greenberg M.D. Primary Care Physician: Primary Care Physician No DISCHARGE SUMMARY REASON FOR ADMISSION The patient is a 36-year-old white female, admitted with a recent relapse of methamphetamine and opioid use. HOSPITAL COURSE The patient was admitted to the [facility] unit and placed on routine detoxification protocol for opioid. She was restarted on previously prescribed home medications including Risperdal, BuSpar, trazodone, and Depakote. The patient improved rapidly over her brief hospitalization. By 01/03/2017, the patient was in bright spirits and agreeable with a plan for followup in the intensive outpatient program provided by this facility. Discharge was ordered. FINAL DIAGNOSES Bipolar disorder, most recent episode depressed; methamphetamine disorder; opioid use disorder. DISCHARGE MEDICATIONS The patient is discharged on the following medications: Risperdal 3 mg b.i.d. for mood stabilization, BuSpar 10 mg b.i.d. for anxiety, trazodone 50 mg at h.s. p.r.n. insomnia, and Depakote ER 500 mg 2 tablets at bedtime for mood stabilization. DISCHARGE INSTRUCTIONS No dietary or physical restrictions were placed upon the patient at the time of discharge. FOLLOWUP Followup will take place in the chemical dependency intensive outpatient program provided by this facility. PROGNOSIS The patient's prognosis is considered fair. Dictated by... Silverio Greenberg M.D. CB/javier TD: 01/03/2017 19:35 JOB #: [id number] Unit #: [id number] #: [id number] Patient: DEON FLOWERS DISCHARGE SUMMARY Page 1 of 1 X Silverio Greneberg MD X DISCHARGE SUMMARY
--- NOTE | ~2016-12-30 | PA ---
Unit #: [id number] #: [id number] Patient: DEON FLOWERS [id number] [facility] [address] [place] [address] [id number] I MR#: [id number] NAME: DEON FLOWERS ROOM: [facility] Age: 36 Sex: F Admission Date: 12/30/2016 : 1980 Date of Assessment: 12/31/2016 Attending Physician: Silverio Greenberg M.D. Admitting Physician: Silverio Greenberg M.D. Primary Care Physician: Primary Care Physician No PSYCHIATRIC ASSESSMENT IDENTIFYING INFORMATION The patient is a 36-year-old white female readmitted to the [address] [place] [address] Unit with recurrent abuse of methamphetamine and opioids. CHIEF COMPLAINT "I relapsed." INFORMANT Patient, reliability is poor. HISTORY OF PRESENT ILLNESS The patient is a 36-year-old white female last discharged from this facility on 12/11/2016. She returned to [facility] reporting positive suicidal ideation with plan to get hold of drugs and kill herself by means of overdose. The patient was last discharged from this facility on 12/11/2016 under similar circumstances. She had not comply with recommended postdischarge treatment, i.e., the chemical dependence intensive outpatient program. When seen today, the patient is continuing to report positive suicidal ideation. She claims to have been compliant with the prescribed medication. For more complete history of present illness, please refer to previously dictated notes. PAST PSYCHIATRIC HISTORY Reviewed, no changes. PAST MEDICAL HISTORY Reviewed, no changes. MEDICATIONS Depakote, Risperdal, BuSpar, trazodone. ALLERGIES None reported. FAMILY HISTORY Reviewed, no changes. SOCIAL HISTORY Reviewed, no changes. MENTAL STATUS EXAMINATION Examination at this time reveals the patient to be an obese white female appearing her stated age. She is in no apparent physical distress at the Unit #: [id number] #: [id number] Patient: DEON FLOWERS time of the examination. She is awake, alert, and oriented in all spheres. Her mood is mildly dysphoric, her affect blunted and strange. Speech is generally well-coherent. No gross deficits in memory or cognition are noted. The patient's intelligence is judged to be in the average range based on fund of knowledge. The patient is generally cooperative throughout the interview. She is currently reporting positive suicidal ideation with plan to overdose. She denies homicidal ideation. She is not reporting any psychotic symptoms at this time. Her judgment and insight appear to have a degree of impairment. ASSETS AND LIABILITIES The patient's assets to be assessed. Liabilities: Ongoing substance use. DIAGNOSTIC IMPRESSION 1. Methamphetamine use disorder. 2. Opioid use disorder. 3. Bipolar disorder by history. TREATMENT PLAN The patient remains hospitalized for safety and stabilization. We will restart medications once we are ceratin that the patient is not . The patient will participate in appropriate order of milieu activities. ESTIMATED LENGTH OF STAY 3 to 5 days. Suicide precautions are of course in place. Dictated by... Silverio Greenberg M.D. Srinath TD: 12/31/2016 13:40 JOB #: [id number] PSYCHIATRIC ASSESSMENT Page 1 of 1 X Silverio Greenberg MD X PSYCHIATRIC ASSESSMENT
--- NOTE | ~2016-12-30 | PN ---
Unit #: [id number] #: [id number] Patient: DEON FLOWERS [id number] [facility] [address] [place] [address] [id number] I MR#: [id number] NAME: DEON FLOWERS ROOM: [facility] Age: 36 Sex: F Admission Date: 12/30/2016 : 1980 Attending Physician: Silverio Greenberg M.D. Admitting Physician: Silverio Greenberg M.D. Primary Care Physician: Primary Care Physician Chioma DELUNA PROGRESS NOTES DATE 01/01/2017 DISCUSSION The patient is cheerful today and complains, "my meds aren't working." I have spoken with the patient regarding her noncompliance of treatment and the fact that i.e. her failure to attend intensive outpatient program at the time of her last discharge from the hospital as well as her ongoing abuse of substances as reason that her "meds aren't working." She continues to endorse positive suicidal ideation and appears to be in some physical distress related to opiate withdrawal. Dictated by... Silverio Greenberg M.D. CB/minesh TD: 01/01/2017 15:48 JOB #: [id number] REGI ZARATE NOTES Page 1 of 1 X Silverio Greenberg MD PROGRESS NOTE
--- NOTE | ~2016-12-30 | PN ---
Unit #: [id number] #: [id number] Patient: DEON FLOWERS [id number] [facility] [address] [place] [address] [id number] I MR#: [id number] NAME: DEON FLOWERS ROOM: [facility] Age: 36 Sex: F Admission Date: 12/30/2016 : 1980 Attending Physician: Silverio Greenberg M.D. Admitting Physician: Silverio Greenberg M.D. Primary Care Physician: Primary Care Physician Chioma DELUNA PROGRESS NOTES DATE 01/02/2017 DISCUSSION The patient is not tearful today and seems to be in brighter spirits. She is requesting discharge but agrees to remain in the hospital for one further day of observation and completion of detox. I have again spoken with the patient regarding the importance of compliance with intensive outpatient programming if she hopes to maintain sobriety after discharge. Dictated by... Silverio Greenberg M.D. CB/bzg TD: 01/03/2017 07:13 JOB #: [id number] REGI PROGRESS NOTES Page 1 of 1 X Silverio Greenberg MD PROGRESS NOTE
[2016-12-30 20:36] LABS: URINE APPEARANCE CLEAR; URINE BILIRUBIN NEG (NEG); URINE BLOOD NEG (NEG); URINE COLOR YELLOW; URINE GLUCOSE NEG (NEG); URINE KETONE NEG (NEG); URINE LEUKOCYTE ESTERASE TRACE (NEG); URINE NITRATE NEG (NEG); URINE PH 5.5 (5-8); URINE PROTEIN NEG (NEG); URINE SPECIFIC GRAVITY 1.009 (1.003-1.035); URINE UROBILINOGEN 0.2 MG/DL (NEG)
[2016-12-30 20:39] LABS: URBCS1 AUWI 0-2 /[HPF] (0-2); URINE BACTERIA AUWI NEG (NEGATIVE); URINE SQUAMOUS EPITHELIAL CELL OCC /[HPF]
[2016-12-31 23:00] LABS: BILIRUBIN,TOTAL 0.6 mg/dL (0.2-2.0); CALCIUM SERUM 9.1 mg/dL (8.4-10.2); CREATININE SERUM 0.6 mg/dL (0.6-1.4); GLOM FILT RATE Estimated 118.9 mL/min (>60); POTASSIUM 4.1 mmol/L (3.5-5.1); PROTEIN TOTAL SERUM 7.1 g/dL (6.0-8.3)
[2017-01-03 08:13] LABS: CHLAMYDIA TRACH Not Detected (Not Detected); N GONOR Not Detected (Not Detected)
== END 2017-01-03 16:25 | disposition home or self-care (01) | DRG 885 ==
LOC: P1E 17:25
PROVIDERS: Psychiatry & Neurology Psychiatry; Specialist
PROC: HZ2ZZZZ Detoxification Services for Substance Abuse Treatment (ICD-10-PCS; principal; 2016-12-30)
DX: F31.9 Bipolar disorder, unspecified (principal); F11.10 Opioid abuse, uncomplicated; F15.10 Other stimulant abuse, uncomplicated
CPT/HCPCS: 80053; 81003; 84703; 86592; 87491; 87591

== ENCOUNTER 2017-01-17 06:46 | Emergency (ER) | payer OTHER ==
--- NOTE | ~2017-01-17 | EKG ---
PATIENT: DEON FLOWERS UNIT #: [id number] Ventricular Rate: 118 BPM Atrial Rate: 133 BPM P-R Interval: 116 ms QRS Duration: 74 ms Q-T Interval: 288 ms QTC Calculation(Bezet): 403 ms P [place]: 69 degrees Calculated R [place]: 60 degrees Calculated T [place]: 38 degrees Diagnosis Line: Sinus tachycardia Diagnosis Line: Nonspecific ST abnormality Diagnosis Line: Abnormal ECG Diagnosis Line: When compared with ECG of 16-NOV-2016 12:22, Diagnosis Line: Nonspecific T wave abnormality has replaced Diagnosis Line: inverted T waves in Inferior leads Diagnosis Line: Nonspecific T wave abnormality no longer evident Diagnosis Line: in Anterior leads Diagnosis Line: Confirmed by DANA OVALLE MD ([id number]) on 01/18/2017 Diagnosis Line: 9:59:43 AM INTERPRETING MD: YAMILE BUCHANAN
--- NOTE | ~2017-01-17 | CR72 ---
[facility] A Service of [facility] & [facility] RADIOLOGY TEXT RESULTS PATIENT: DEON FLOWERS LOCATION: [facility] : 84 UNIT #: [id number] AGE: [address]: Ijeoma Soto APRN SEX: F ORDER DR: [id number] [facility] [address] [place], [place] [address] [id number] MR#: [id number] Acc #: [id number] NAME: DEON FLOWERS : 1980 SEX: F STUDY DATE/TIME: 01/17/2017 8:06 UNIT: [facility] ROOM: STUDY DESCRIPTION: CR Chest Single View Portable Attending Physician: Ijeoma Soto A.P.R.N. Ordering Physician: Ed Doctor [id number] [facility] Primary Care Physician: Primary Care Physician No MEDICAL IMAGING REPORT This report is preliminary unless electronic signature is present EXAM Portable chest, 01/17 HISTORY Burning in neck and chest. This started this morning. The patient feels like throat is closing. History of smoking. COMPARISON 11/16/2016 FINDINGS A single AP portable view of the chest shows both lungs to be clear. The heart is normal in size. The mediastinal contour is normal. No significant bone abnormalities are seen. IMPRESSION Normal portable chest. Dictated by... Andrea Moses Jr., M.D. THIS IS AN ELECTRONICALLY VERIFIED REPORT Andrea Moses Jr., M.D. at 01/17/2017 4:47 PM RAMY/marco a TD: 01/17/2017 09:32 JOB #: [id number] MEDICAL IMAGING REPORT Page 1 of 1 COPY
[2017-01-17 08:14] LABS: URINE SOURCE CLEAN CATCH
[2017-01-17 08:16] LABS: BASOPHIL# 0.1 X10e3 (0-0.3); BASOPHIL% 0.5 % (0-2.5); EOSINOPHIL# 0.2 X10e3 (0-0.7); EOSINOPHIL% 1.9 % (0.0-7.0); HEMOGLOBIN 15.1 gm/dL (12.0-16.0); LYMPHOCYTE% 18.3 % (17.0-45.0); MEAN CELL VOLUME 91.3 FL (83-96); MEAN CORPUSCULAR HEMOGLOBIN 30.5 PG (28-34); MEAN CORPUSCULAR HGB CONC 33.5 g/dL (30-36); MEAN PLATELET VOLUME 9.4 FL (6.5-11.5); MONOCYTE# 0.8 X10e3 (0-1.0); MONOCYTE% 7.8 % (3.0-12.0); NEUTROPHIL# 7.7 X10e3 (1.5-7.1); NEUTROPHIL% 71.5 % (40-75); PLATELET COUNT 256 X10e3 (140-420); RED BLOOD COUNT 4.93 X10e (3.90-5.30); RED CELL DISTRIBUTION WIDTH 13.5 % (11.0-15.5); WHITE BLOOD COUNT 10.8 X10e3 (4.0-10.5)
[2017-01-17 08:21] LABS: DIFF IND NO
[2017-01-17 08:23] LABS: URINE APPEARANCE CLEAR; URINE BILIRUBIN NEG (NEG); URINE BLOOD TRACE (NEG); URINE COLOR YELLOW; URINE GLUCOSE NEG (NEG); URINE KETONE NEG (NEG); URINE LEUKOCYTE ESTERASE NEG (NEG); URINE NITRATE NEG (NEG); URINE PH 5.5 (5-8); URINE PROTEIN NEG (NEG); URINE SPECIFIC GRAVITY 1.014 (1.003-1.035); URINE UROBILINOGEN 0.2 MG/DL (NEG)
[2017-01-17 08:26] LABS: CULTURE INDICATED? YES; URINE BACTERIA AUWI 1+ (NEGATIVE); URINE SQUAMOUS EPITHELIAL CELL MOD /[HPF]
[2017-01-17 08:34] LABS: U HYALINE CASTS AUWI 0-2 /[LPF]; URINE MUCUS PRESENT
[2017-01-17 08:35] LABS: URBCS1 AUWI 0-2 /[HPF] (0-2)
[2017-01-17 08:53] LABS: AMPHETAMINE POS (NEG); BARBITURATES NEG (NEG); BENZODIAZEPINES NEG (NEG); COCAINE POS (NEG); MARIJUANA NEG (NEG); OPIATES NEG (NEG); TRICYCLIC ANTIDEPRESSANTS NEG (NEG); U METHADONE NEG (NEG)
[2017-01-17 09:14] LABS: ALBUMIN SERUM 4.8 g/dL (3.5-5.0); BILIRUBIN,TOTAL 0.4 mg/dL (0.2-2.0); BUN/CREATININE RATIO 13.75; CALCIUM SERUM 9.6 mg/dL (8.4-10.2); CREATININE SERUM 0.8 mg/dL (0.6-1.4); GLOM FILT RATE Estimated 96.3 mL/min (>60); POTASSIUM 3.8 mmol/L (3.5-5.1); PROTEIN TOTAL SERUM 8.2 g/dL (6.0-8.3)
[2017-01-17 09:40] LABS: %MB 3.6 % (0.0-4.0)
== END 2017-01-17 13:37 | disposition short-term general hospital (02) ==
LOC: CED 06:46
PROVIDERS: Nurse Practitioner
DX: F29 Unspecified psychosis not due to a substance or known physiological condition (principal); R00.0 Tachycardia, unspecified; F14.10 Cocaine abuse, uncomplicated; F15.10 Other stimulant abuse, uncomplicated; F41.9 Anxiety disorder, unspecified; G47.33 Obstructive sleep apnea (adult) (pediatric); F17.210 Nicotine dependence, cigarettes, uncomplicated
CPT/HCPCS: 36415; 71010; 80053; 80307; 81003; 82550; 82553; 82947; 84484; 84703; 85025; 87086; 87651; 93005; 99285

== ENCOUNTER 2017-01-17 10:28 | Inpatient (IN) | payer OTHER ==
--- NOTE | ~2017-01-17 | PA ---
Unit #: [id number] #: [id number] Patient: DEON FLOWERS [id number] [facility] [address] [place] [address] [id number] I MR#: [id number] NAME: DEON FLOWERS ROOM: [facility] Age: 36 Sex: F Admission Date: 01/17/2017 : 1980 Date of Assessment: 01/18/2017 Attending Physician: Silverio Greenberg M.D. Admitting Physician: Silverio Greenberg M.D. Primary Care Physician: Primary Care Physician No PSYCHIATRIC ASSESSMENT IDENTIFYING INFORMATION The patient is a 36-year-old white female admitted in a state of florid psychosis after presenting to [facility] intoxicated on methamphetamine and "spice". CHIEF COMPLAINT None given. INFORMANT Chart, the patient cannot be aroused for interview. HISTORY OF PRESENT ILLNESS The patient is a 36-year-old white female well-known to this physician. She has a long history of abuse of synthetic marijuana and methamphetamine as well as a history of a diagnosis with bipolar spectrum disorder. She had been participating in the intensive outpatient program but was lost to followup there and had returned to [facility] voicing positive psychotic thinking and suicidal ideation on the evening of 01/17/2017. When seen today the patient is sleeping soundly and cannot be aroused for interview. For more complete history of present illness, please refer to previously dictated notes. PAST PSYCHIATRIC HISTORY Reviewed, no changes. PAST MEDICAL HISTORY Reviewed, no changes. MEDICATIONS At the time of admission the patient's medication included Depakote ER, trazodone, BuSpar and Risperdal. ALLERGIES Latex, tramadol FAMILY HISTORY Reviewed, no changes. SOCIAL HISTORY Reviewed, no changes. MENTAL STATUS EXAMINATION Examination at this time reveals the patient to be a soundly sleeping Unit #: [id number] #: [id number] Patient: DEON FLOWERS slightly obese white female appearing her stated age. Multiple attempts to arouse the patient are at last unsuccessful. ASSETS AND LIABILITIES The patient's assets to be assessed. Liabilities: Lack of resources. DIAGNOSTIC IMPRESSION 1. Bipolar disorder manic phase. 2. Methamphetamine use disorder. 3. Hallucinogen use disorder. TREATMENT PLAN The patient remains hospitalized for safety and stabilization. We will restart the patient's previously prescribed psychotropic medications and we will watch for any signs of detox. The patient will be referred back to the intensive outpatient program once her psychotic symptoms have cleared. It is at this point unclear whether the patient's psychotic symptoms are methamphetamine and synthetic marijuana induced or secondary to her poor compliance with her prescribed bipolar medications. ESTIMATED LENGTH OF STAY Five to seven days. Dictated by... Silverio Greenberg M.D. FABIO/kristi TD: 01/18/2017 21:14 JOB #: [id number] PSYCHIATRIC ASSESSMENT Page 1 of 1 X Silverio Greenberg MD X PSYCHIATRIC ASSESSMENT
--- NOTE | ~2017-01-17 | HP ---
Unit #: [id number] #: [id number] Patient: YUMIKO FLOWERS [id number] [place] [address] [id number] I MR#: [id number] NAME: YUMIKO FLOWERS ROOM: 12 Age: 36 Sex: F Admission Date: 01/17/2017 : 1980 Attending Physician: Silverio Greenberg M.D. Admitting Physician: Silverio Greenberg M.D. Primary Care Physician: Primary Care Physician No HISTORY AND PHYSICAL HISTORY OF PRESENT ILLNESS Yumiko is a 36 year old admitted to [address] [place] [address] with drug induced psychosis. She is a very poor historian so her history is taken from her chart. Exam is limited. She has had other admissions to this facility for the same. PAST MEDICAL HISTORY 1. History of poly illicit substance abuse to include methadone, Suboxone and benzodiazepines. 2. History of withdrawal seizures. 3. High blood pressure. 4. Obesity. PAST SURGICAL HISTORY 1. Cholecystectomy 2. D & C ALLERGIES No known drug allergies. SOCIAL HISTORY Smokes one pack per day. Drinks alcohol rarely. Has a history of illicit drug use. FAMILY HISTORY Medically noncontributory. REVIEW OF SYSTEMS She does not answer any questions appropriately. There are no reports of nausea, vomiting or diarrhea. She has had no cough or increased temperature. CURRENT MEDICATIONS 1. Detox protocol 2. Nicotine patch 7 mg q day 3. Depakote ER 1000 mg q.h.s. 4. BuSpar 10 mg b.i.d. PHYSICAL EXAMINATION GENERAL: Alert, well-nourished, in no apparent distress. VITAL SIGNS: Blood pressure 120/70, heart rate 80, respirations 16, temperature 98.6. WEIGHT: 200 pounds. Unit #: [id number] #: [id number] Patient: YUMIKO FLOWERS HEIGHT: 5'5". SKIN: Warm and dry without rash or lesion. HEENT: Normocephalic. TMs not viewed. Oral and nasal passages clear. Conjunctivae clear. Pupils equal, round and reactive to light and accommodation. Extraocular movements intact. NECK: Supple without lymphadenopathy or thyromegaly. HEART: Regular rate and rhythm without murmur. LUNGS: Clear. ABDOMEN: Soft, nontender. : Not done. EXTREMITIES: No evidence of cyanosis, clubbing or edema. Moves all extremities without focal deficit. NEUROLOGICAL: Unable to complete extended exam. She does move all extremities without focal deficit. Gait is normal. IMPRESSION Psychiatric admission RECOMMENDATIONS PSYCHIATRIC: Per psychiatrist. MEDICAL: I see no contraindications to participating in facility's activities. MEDICAL PROGNOSIS Good. MEDICAL CONDITION Stable. Dictated by... Lashon Fowler P.A.-C. for Chuckie Norton/kristi TD: 01/18/2017 23:24 JOB #: [id number] HISTORY AND PHYSICAL Page 1 of 1 X Lashon Fowler X HISTORY AND PHYSICAL
--- NOTE | ~2017-01-17 | DS ---
Unit #: [id number] #: [id number] Patient: DEON FLOWERS [id number] [facility] [address] [place] [address] [id number] I MR#: [id number] NAME: DEON FLOWERS ROOM: [facility] Age: 36 Sex: F Admission Date: 01/17/2017 : 1980 Discharge Date: 01/19/2017 Attending Physician: Silverio Greenberg M.D. Primary Care Physician: Primary Care Physician No DISCHARGE SUMMARY IDENTIFYING INFORMATION The patient is a 36-year-old white female, admitted with recurrent psychosis related to abuse of methamphetamine. HOSPITAL COURSE The patient was admitted to the [address] [place] [address] unit and placed on suicide precautions. She was restarted on previously prescribed home medications including Depakote, Risperdal, BuSpar, and Desyrel. The patient's mentation cleared rapidly and by 01/19/2017, she requested discharge from the hospital stating a wish to return to the chemical dependency intensive outpatient program. Discharge was ordered. FINAL DIAGNOSES Bipolar disorder, most recent episode manic; methamphetamine use disorder. DISPOSITION ON DISCHARGE The patient is discharged on following medications: Depakote ER 1000 mg at bedtime for mood stabilization, Desyrel 50 mg at bedtime for p.r.n. insomnia, BuSpar 10 mg b.i.d. for anxiety, and Risperdal 3 mg b.i.d. for psychosis. DISCHARGE INSTRUCTIONS No dietary or physical restrictions were placed on the patient at the time of discharge. FOLLOWUP Followup will take place through the auspices of community mental health resources and the chemical dependency intensive outpatient program provided by this facility. PROGNOSIS The patient's prognosis is considered fair. Dictated by... Silverio Greenberg M.D. CB/javier TD: 01/19/2017 20:56 JOB #: [id number] Unit #: [id number] #: [id number] Patient: DEON FLOWERS DISCHARGE SUMMARY Page 1 of 1 X Silverio Greenberg MD X DISCHARGE SUMMARY
== END 2017-01-19 16:47 | disposition home or self-care (01) | DRG 885 ==
LOC: P2S 13:45 → P1S 13:45 → POF 14:24 → P1S 14:41
PROC: HZ2ZZZZ Detoxification Services for Substance Abuse Treatment (ICD-10-PCS; principal; 2017-01-17)
DX: F31.9 Bipolar disorder, unspecified (principal); F16.10 Hallucinogen abuse, uncomplicated; Z88.8 Allergy status to other drugs, medicaments and biological substances; Z91.040 Latex allergy status; F15.10 Other stimulant abuse, uncomplicated
CPT/HCPCS: J2550

== ENCOUNTER 2017-01-29 07:12 | Observation (INO) | payer OTHER ==
--- NOTE | ~2017-01-29 | EKG ---
PATIENT: DEON FLOWERS UNIT #: [id number] Ventricular Rate: 87 BPM Atrial Rate: 87 BPM P-R Interval: 116 ms QRS Duration: 82 ms Q-T Interval: 356 ms QTC Calculation(Bezet): 428 ms P [place]: 270 degrees Calculated R [place]: 53 degrees Calculated T [place]: 11 degrees Diagnosis Line: Unusual P axis and short ID, probable junctional Diagnosis Line: tachycardia Diagnosis Line: Nonspecific ST and T wave abnormality Diagnosis Line: Abnormal ECG Diagnosis Line: When compared with ECG of 17-JAN-2017 07:55, Diagnosis Line: Junctional rhythm has replaced Sinus rhythm Diagnosis Line: Confirmed by KLARISSA SHEPARD MD ([id number]) on Diagnosis Line: 01/29/2017 3:46:53 PM INTERPRETING MD: DREA BUCHANAN
--- NOTE | ~2017-01-29 | CR63 ---
[facility] A Service of [facility] RADIOLOGY TEXT RESULTS PATIENT: DEON FLOWERS LOCATION: [facility] [address]-04 : [birth year] UNIT #: [id number] AGE: [address]: BRUCE MCCORMACK MD SEX: F ORDER DR: [id number] [facility] [address] [place], [place] [address] [id number] E MR#: [id number] Acc #: [id number] NAME: DEON FLOWERS : 1980 SEX: F STUDY DATE/TIME: 01/29/2017 9:17 UNIT: [facility] ROOM: STUDY DESCRIPTION: CR Chest 2 View Attending Physician: Kevin Reyes D.O. Ordering Physician: Kevin Reyes D.O. Primary Care Physician: Primary Care Physician No MEDICAL IMAGING REPORT This report is preliminary unless electronic signature is present EXAM Two-view chest, 01/29/2017. HISTORY 36-year-old female with shortness of air and palpitations for 3 days. Essential hypertension. COMPARISON Chest, 01/17/2017. FINDINGS 2 views of the chest demonstrate clear lungs. No pleural effusion or pneumothorax. Heart size and mediastinum are normal. Pulmonary vasculature normal. IMPRESSION No acute cardiopulmonary findings. Dictated by... Roland Hassan M.D. THIS IS AN ELECTRONICALLY VERIFIED REPORT Roland Hassan M.D. at 01/30/2017 8:54 AM DELORIS/dana TD: 01/29/2017 09:33 JOB #: [id number] MEDICAL IMAGING REPORT Page 1 of 1 COPY
--- NOTE | ~2017-01-29 | EKG ---
PATIENT: DEON FLOWERS UNIT #: [id number] Ventricular Rate: 88 BPM Atrial Rate: 88 BPM P-R Interval: 126 ms QRS Duration: 82 ms Q-T Interval: 332 ms QTC Calculation(Bezet): 401 ms P [place]: 72 degrees Calculated R [place]: 61 degrees Calculated T [place]: 13 degrees Diagnosis Line: Normal sinus rhythm with sinus arrhythmia Diagnosis Line: Nonspecific T wave abnormality Diagnosis Line: Abnormal ECG Diagnosis Line: When compared with ECG of 29-JAN-2017 09:50, Diagnosis Line: (unconfirmed) Diagnosis Line: Sinus rhythm has replaced Junctional rhythm Diagnosis Line: Confirmed by KLARISSA SHEPARD MD ([id number]) on Diagnosis Line: 01/29/2017 3:47:00 PM INTERPRETING MD: DREA BUCHANAN
[2017-01-29 08:10] LABS: BASOPHIL# 0.1 X10e3 (0-0.3); BASOPHIL% 0.4 % (0-2.5); EOSINOPHIL# 0.2 X10e3 (0-0.7); EOSINOPHIL% 1.4 % (0.0-7.0); HEMATOCRIT 44.4 % (35.0-45.0); HEMOGLOBIN 15.2 gm/dL (12.0-16.0); LYMPHOCYTE# 2.5 X10e3 (1.0-3.5); LYMPHOCYTE% 19.6 % (17.0-45.0); MEAN CELL VOLUME 90.6 FL (83-96); MEAN CORPUSCULAR HEMOGLOBIN 30.9 PG (28-34); MEAN CORPUSCULAR HGB CONC 34.1 g/dL (30-36); MEAN PLATELET VOLUME 10.3 FL (6.5-11.5); MONOCYTE# 0.8 X10e3 (0-1.0); MONOCYTE% 6.6 % (3.0-12.0); NEUTROPHIL# 9.1 X10e3 (1.5-7.1); PLATELET COUNT 295 X10e3 (140-420); RED CELL DISTRIBUTION WIDTH 14.2 % (11.0-15.5); WHITE BLOOD COUNT 12.7 X10e3 (4.0-10.5)
[2017-01-29 08:11] LABS: DIFF IND NO
[2017-01-29 08:20] LABS: POC - CKMB <1.0 ng/mL (0.0-7.9); POC - TROPONIN <0.05 ng/mL (<=0.05)
[2017-01-29 08:48] LABS: ALBUMIN SERUM 4.7 g/dL (3.5-5.0); BILIRUBIN,TOTAL 0.8 mg/dL (0.2-2.0); CALCIUM SERUM 9.6 mg/dL (8.4-10.2); CREATININE SERUM 0.7 mg/dL (0.6-1.4); POTASSIUM 4.4 mmol/L (3.5-5.1); PROTEIN TOTAL SERUM 7.9 g/dL (6.0-8.3)
[2017-01-29 12:24] LABS: URINE SOURCE CLEAN CATCH
[2017-01-29 12:28] LABS: URINE APPEARANCE CLOUDY; URINE BILIRUBIN NEG (NEG); URINE BLOOD NEG (NEG); URINE COLOR YELLOW; URINE GLUCOSE NEG (NEG); URINE KETONE NEG (NEG); URINE LEUKOCYTE ESTERASE NEG (NEG); URINE NITRATE NEG (NEG); URINE PH 5.5 (5-8); URINE PROTEIN NEG (NEG); URINE UROBILINOGEN 0.2 MG/DL (NEG)
[2017-01-29 12:33] LABS: CULTURE INDICATED? NO
[2017-01-29 13:25] LABS: POC - CKMB <1.0 ng/mL (0.0-7.9); POC - TROPONIN <0.05 ng/mL (<=0.05)
== END 2017-01-29 16:00 | disposition left against medical advice (07) ==
LOC: CED 07:12 → CEDOF 13:56
PROVIDERS: Emergency Medicine
DX: R07.9 Chest pain, unspecified (principal); F15.959 Other stimulant use, unspecified with stimulant-induced psychotic disorder, unspecified; Z90.49 Acquired absence of other specified parts of digestive tract
CPT/HCPCS: 36415; 71020; 80053; 80164; 81003; 82553; 83735; 84484; 85025; 93005; 96360; 99285; G0378; J3486

== ENCOUNTER 2017-04-14 15:47 | Emergency (ER) | payer OTHER ==
[~2017-04-14] VITALS: Ht 162.6 cm; Wt 78.9 kg
[2017-04-14 19:15] LABS: BASOPHIL# 0.1 X10e3 (0-0.3); BASOPHIL% 0.6 % (0-2.5); EOSINOPHIL# 0.2 X10e3 (0-0.7); EOSINOPHIL% 1.4 % (0.0-7.0); HEMATOCRIT 44.8 % (35.0-45.0); HEMOGLOBIN 15.5 gm/dL (12.0-16.0); LYMPHOCYTE# 4.3 X10e3 (1.0-3.5); LYMPHOCYTE% 34.5 % (17.0-45.0); MEAN CELL VOLUME 92.3 FL (83-96); MEAN CORPUSCULAR HEMOGLOBIN 31.9 PG (28-34); MEAN CORPUSCULAR HGB CONC 34.6 g/dL (30-36); MEAN PLATELET VOLUME 8.1 FL (6.5-11.5); MONOCYTE# 0.8 X10e3 (0-1.0); MONOCYTE% 6.3 % (3.0-12.0); NEUTROPHIL# 7.1 X10e3 (1.5-7.1); NEUTROPHIL% 57.2 % (40-75); PLATELET COUNT 277 X10e3 (140-420); RED BLOOD COUNT 4.85 X10e (3.90-5.30); RED CELL DISTRIBUTION WIDTH 14.4 % (11.0-15.5); WHITE BLOOD COUNT 12.4 X10e3 (4.0-10.5)
[2017-04-14 19:16] LABS: DIFF IND NO
[2017-04-14 19:34] LABS: BLOOD UREA NITROGEN 9 mg/dL (9-23); CALCIUM SERUM 9.7 mg/dL (8.4-10.2); CARBON DIOXIDE 27 mmol/L (22-31); CHLORIDE 99 mmol/L (100-111); CREATININE SERUM 0.6 mg/dL (0.6-1.4); GLOM FILT RATE Estimated 118.9 mL/min (>60); GLUCOSE FASTING 98 mg/dL (70-110); POTASSIUM 3.5 mmol/L (3.5-5.1); SODIUM 136 mmol/L (135-145)
[2017-04-14 19:36] LABS: ALCOHOL BLOOD <5 mg/dL (0)
[2017-04-14 20:23] LABS: AMPHETAMINE POS (NEG); BARBITURATES NEG (NEG); BENZODIAZEPINES NEG (NEG); COCAINE NEG (NEG); MARIJUANA NEG (NEG); OPIATES NEG (NEG); TRICYCLIC ANTIDEPRESSANTS NEG (NEG); U METHADONE NEG (NEG)
== END 2017-04-14 20:40 | disposition left against medical advice (07) ==
LOC: CED 15:47
PROVIDERS: Emergency Medicine
DX: J02.9 Acute pharyngitis, unspecified (principal); Z88.5 Allergy status to narcotic agent; Z91.040 Latex allergy status
CPT/HCPCS: 36415; 80048; 80307; 85025; 99284; G0480

== ENCOUNTER 2017-04-18 12:43 | Emergency (ER) | payer OTHER ==
[~2017-04-18] VITALS: Ht 162.6 cm; Wt 78.9 kg
== END 2017-04-18 13:52 | disposition home or self-care (01) ==
LOC: CED 12:43 → CFTX 12:43 → CED 13:32
DX: J02.9 Acute pharyngitis, unspecified (principal); F19.10 Other psychoactive substance abuse, uncomplicated; F17.200 Nicotine dependence, unspecified, uncomplicated; I10 Essential (primary) hypertension; Z91.040 Latex allergy status; Z88.6 Allergy status to analgesic agent
CPT/HCPCS: 99283

== ENCOUNTER 2017-04-18 19:22 | Inpatient (IN) | payer OTHER ==
--- NOTE | ~2017-04-18 | HP ---
Unit #: [id number] #: [id number] Patient: YUMIKO FLOWERS [id number] [place] [address] [id number] MR#: [id number] NAME: YUMIKO FLOWERS. ROOM: P122 Age: 36 Sex: F Admission Date: 04/18/2017 : 1980 Attending Physician: Silverio Greenberg M.D. Admitting Physician: Silverio Greenberg M.D. Primary Care Physician: [facility] HISTORY AND PHYSICAL HISTORY OF PRESENT ILLNESS Yumiko is a 36 year old admitted to [address] [place] [address] because of her continued polysubstance abuse. PAST MEDICAL HISTORY 1. Long history of illicit substance abuse to include methadone, heroin, Suboxone, benzodiazepines. 2. History of withdrawal seizures. 3. High blood pressure. 4. Obesity. PAST SURGICAL HISTORY 1. Cholecystectomy. 2. D and C. ALLERGIES No known drug allergies. SOCIAL HISTORY Smokes 1 pack per day. Drinks alcohol regularly and admits to a history of poly-illicit substance abuse. FAMILY HISTORY Medically noncontributory. REVIEW OF SYSTEMS There are no reports of nausea, vomiting or diarrhea. She has had no cough or increased temperature. CURRENT MEDICATIONS 1. Detox protocol. 2. Risperdal 3 mg b.i.d. PHYSICAL EXAMINATION GENERAL: Alert, obese, in no apparent distress. VITAL SIGNS: Blood pressure 120/70, heart rate 80, respirations 16, temperature 98.6. WEIGHT: 173. HEIGHT: 5 feet 4 inches. SKIN: Warm and dry without rash or lesion. HEENT: Normocephalic. TMs not viewed. Oral and nasal passages clear. Conjunctivae clear. PERRLA. EOMs intact. NECK: Supple without lymphadenopathy or thyromegaly. Unit #: [id number] #: [id number] Patient: YUMIKO FLOWERS HEART: Regular rate and rhythm without murmur. LUNGS: Clear. ABDOMEN: Soft, nontender. : Not done. EXTREMITIES: No evidence of cyanosis, clubbing or edema. Moves all without focal deficit. NEUROLOGICAL: Grossly within normal limits. Cranial Nerves: II: Visual messer are intact. III, IV AND : Extraocular movements are intact. Pupils are equal, round and reactive to light. V: Facial sensation is grossly normal. VII: Facial movements and expression are normal. VIII: Auditory acuity grossly intact. IX, X: Uvula is midline. Phonation is normal. XI: Patient shrugs shoulders and turns head normally. XII: Tongue protrudes in the midline. Sensory and Motor Function: Sensory and motor sensation is grossly normal. Motor: moves all extremities well. Coordination: Gait is normal. Deep Tendon Reflexes: Intact. IMPRESSION Psychiatric admission. RECOMMENDATIONS PSYCHIATRIC: Per psychiatrist. MEDICAL: See no contraindication to participate in facility's activities. MEDICAL PROGNOSIS Good. MEDICAL CONDITION Stable. Dictated by... Lashon Fowler P.A.-C. for Chuckie Norton/clarice TD: 04/19/2017 17:44 JOB #: [id number] HISTORY AND PHYSICAL Page 1 of 1 X Lashon Fowler X HISTORY AND PHYSICAL
--- NOTE | ~2017-04-18 | PA ---
Unit #: [id number] #: [id number] Patient: DEON FLOWERS [id number] [facility] [address] [place] [address] [id number] MR#: [id number] NAME: DEON FLOWERS ROOM: P122 Age: 36 Sex: F Admission Date: 04/18/2017 : 1980 Date of Assessment: 04/19/2017 Attending Physician: Silverio Greenberg M.D. Admitting Physician: Silverio Greenberg M.D. Primary Care Physician: [facility] PSYCHIATRIC ASSESSMENT IDENTIFYING INFORMATION The patient is a 36-year-old white female admitted to the [address] [place] [address] Unit related to a history of increasing opioid abuse and mood instability. CHIEF COMPLAINT None given. INFORMANT Patient, reliability is fair. HISTORY OF PRESENT ILLNESS The patient is a 36-year-old white female with a history of bipolar disorder and opioid abuse. The patient had returned to this facility last evening reporting recent relapse in opioid use and a wish to reinitiate participation in the intensive outpatient program. The patient was reporting positive energy issues with hopelessness and lack of motivation as well as depressed mood. She has no prior history of suicide attempts or gestures, but was reporting positive suicidal ideation with plan to overdose if not admitted to the hospital. For more complete history of present illness, please refer to previously dictated notes. PAST PSYCHIATRIC HISTORY Reviewed, no changes. PAST MEDICAL HISTORY Reviewed, no changes. MEDICATIONS BuSpar, Thorazine, Depakote ER, Risperdal, and trazodone. ALLERGIES Latex, Tramadol. FAMILY HISTORY Reviewed, no changes. SOCIAL HISTORY Reviewed, no changes. MENTAL STATUS EXAMINATION Examination at this time reveals the patient to be a somewhat disheveled white female appearing her stated age. She appears to be in no physical distress at the time of examination. She is awake, alert, and oriented in all spheres. Her mood is euthymic, her affect full range. Speech is Unit #: [id number] #: [id number] Patient: DEON FLOWERS generally well-coherent. There are no gross deficits in memory or cognition noted. Intelligence is judged to be in the average range based on fund of knowledge. The patient is cooperative throughout the interview. She is currently denying suicidal or homicidal ideation or psychotic features. Judgment and insight appear to be intact. ASSETS AND LIABILITIES The patient's assets: Motivation for change. Liabilities: Lack of resources. DIAGNOSTIC IMPRESSION 1. Bipolar disorder by history. 2. Opioid use disorder. TREATMENT PLAN The patient remains hospitalized for safety and stabilization. We will restart previously prescribed medications and routine detoxification protocol for opiates has been initiated. It is the suspicion of this physician that the patient had fabricated suicidal ideation in hopes of any admission to the hospital. She is now pushing for discharge which should take place as early as tomorrow. Dictated by... Silverio Greenberg M.D. Srinath TD: 04/19/2017 14:29 JOB #: [id number] PSYCHIATRIC ASSESSMENT Page 1 of 1 X Silverio Greenberg MD X PSYCHIATRIC ASSESSMENT
--- NOTE | ~2017-04-18 | DS ---
Unit #: [id number] #: [id number] Patient: DEON FLOWERS [id number] [facility] [address] [place] [address] [id number] MR#: [id number] NAME: DEON FLOWERS ROOM: [facility] Age: 36 Sex: F Admission Date: 04/18/2017 : 1980 Discharge Date: 04/20/2017 Attending Physician: Silverio Greenberg M.D. Primary Care Physician: [facility] DISCHARGE SUMMARY REASON FOR ADMISSION The patient is a 36-year-old white female, with a history of bipolar disorder, as well as methamphetamine abuse, admitted voicing suicidal ideation. HOSPITAL COURSE The patient was admitted to the [address] [place] [address] unit. Her suicidal ideation cleared rapidly and even when seen on 04/19, the patient requested discharge, denying suicidal ideation and stating a wish to return to intensive outpatient programming. She was observed for another twenty-four hours and complied with medications and lópez routine without complaint. By 04/20, the patient sustained progress and discharge was ordered. DISCHARGE DIAGNOSES [place] I Methamphetamine use disorder. Bipolar disorder, unspecified. [place] II Riverside III Riverside IV [place]ide V DISPOSITION ON DISCHARGE The patient is discharged on the following medications: 1. BuSpar 10 mg twice daily for anxiety 2. Depakote ER 1000 mg at bedtime for mood stabilization 3. Risperdal 3 mg twice daily for mood stabilization 4. Trazodone 50 mg at h.s. p.r.n. insomnia PROGNOSIS The patient's prognosis is considered fair. DIET AND ACTIVITY No dietary or physical restrictions were placed on the patient at the time of discharge. The followup will take place through the auspices of community mental health resources. Unit #: [id number] #: [id number] Patient: DEON FLOWERS Dictated by... Silverio Greenberg M.D. CB/blaze TD: 04/21/2017 08:14 JOB #: [id number] DISCHARGE SUMMARY Page 1 of 1 X Silverio Greenberg MD X DISCHARGE SUMMARY
== END 2017-04-20 18:14 | disposition home or self-care (01) | DRG 897 ==
LOC: P1S 22:43
PROC: HZ2ZZZZ Detoxification Services for Substance Abuse Treatment (ICD-10-PCS; principal; 2017-04-18)
DX: F11.10 Opioid abuse, uncomplicated (principal); I10 Essential (primary) hypertension; E66.9 Obesity, unspecified; F17.200 Nicotine dependence, unspecified, uncomplicated

== ENCOUNTER → 2017-05-08 | Outpatient (CLI) | payer OTHER ==
--- NOTE | ~2017-05-08 | CR4 ---
[facility] A Service of [facility] & [facility] [place] [place] RADIOLOGY TEXT RESULTS PATIENT: DEON FLOWERS LOCATION: [facility] : [birth year] UNIT #: [id number] AGE: [address]: Khadar Casanova MD SEX: F ORDER DR: [id number] [facility] [address] [place], [place] [address] [id number] MR#: [id number] Acc #: [id number] NAME: DEON FLOWERS : 1980 SEX: F STUDY DATE/TIME: 05/08/2017 15:07 UNIT: [facility] ROOM: STUDY DESCRIPTION: CR Abdomen Flat Upright or Dec Attending Physician: Khadar Casanova M.D. Referring Physician: Khadar Casanova M.D. Ordering Physician: Khadar Casanova M.D. [facility] RE[facility] This report is preliminary unless electronic signature is present EXAM Flat and upright abdomen INDICATION Abdominal pain and diarrhea for years. COMPARISON No comparisons FINDINGS Cholecystectomy. Nonobstructed bowel gas pattern. No dilated loops of bowel. No free air. IMPRESSION Cholecystectomy. Otherwise unremarkable. Dictated by... Dwight Andrew M.D. THIS IS AN ELECTRONICALLY VERIFIED REPORT Dwight Andrew M.D. at 05/10/2017 7:23 AM Iban TD: 05/09/2017 10:25 JOB #: [id number] MEDICAL IMAGING REPORT Page 1 of 1 COPY
== END | disposition home or self-care (01) ==
LOC: CRAD 14:25
DX: R11.2 Nausea with vomiting, unspecified (principal); Z90.49 Acquired absence of other specified parts of digestive tract
CPT/HCPCS: 74020